=== PATIENT | male | born 1960 | race Caucasian/White ===

== ENCOUNTER 2024-05-20 07:29 | Day surgery (SDC) | payer BC ==
[~2024-05-20] VITALS: Ht 165.1 cm; Wt 82.5 kg
[~2024-05-20 07:29] MED LIST: LR 1,000 ML IV SCH; Ondansetron 4 MG/2 ML VIAL IV PRN
[2024-05-20] MEDS ORDERED: PRINIVIL10 MG PO (08:19)
[2024-05-20 08:23] VITALS: BP 148/99; PULSE 60; TEMP 97.1
[2024-05-20 10:05] VITALS: BP 112/79; PULSE 70; TEMP 98
[2024-05-20 10:20] VITALS: BP 121/90; PULSE 61
--- NOTE | 2024-05-20 11:36 | NUR ---
1005: PT TO BAY 2 FROM ENDO SUITE. AMBULATED FROM CART TO RECLINER X2 ASSIST. REPORT RECEIVED FROM ENDO NURSE. PT ALERT AND ORIENTED. DENIES PAIN OR NAUSEA. REQUESTING COFFEE AND MUFFIN. RESTING IN RECLINER. CALL LIGHT IN REACH. PARTNER, ARLYN, AT BEDSIDE. 1020: PT ALERT AND ORIENTED. TOLERATING MUFFIN AND COFFEE. DENIES PAIN AND NAUSEA. RESTING IN RECLINER. CALL LIGHT IN REACH. PARTNER, ARLYN, AT BEDSIDE. 1023: IV DC'D AT THIS TIME. PT DENIES ASSISTANCE GETTING DRESSED. 1035: DR. ROBERTS IN TO SPEAK WITH PT. DISCHARGE EDUCATION DONE AT THIS TIME. PT STATED UNDERSTANDING OF DC INSTRUCTIONS. DC PAPERWORK GIVEN TO PT. 1040: PT AMBULATED INDEPENDENTLY FROM RECLINER TO WHEELCHAIR. PT OFF UNIT AT THIS TIME. PT DC TO HOME WITH FAMILY PER PERSONAL VEHICLE. PT LEFT UNIT WITHOUT SIGNING THE POST-PROCEDURE EDUCATION PAGE. PT SIGNED INSTRUCTION SIGNATURE PAGE.
== END 2024-05-20 10:40 | disposition home or self-care (01) ==
LOC: SDCO 07:29
DX: Z12.11 Encounter for screening for malignant neoplasm of colon (principal); K51.40 Inflammatory polyps of colon without complications; K64.0 First degree hemorrhoids; K57.30 Diverticulosis of large intestine without perforation or abscess without bleeding; K21.9 Gastro-esophageal reflux disease without esophagitis; Z77.22 Contact with and (suspected) exposure to environmental tobacco smoke (acute) (chronic); Z79.899 Other long term (current) drug therapy
CPT/HCPCS: J2704; J7120